=== PATIENT | female | born 1960 | race Caucasian/White ===

== ENCOUNTER → 2017-01-13 | Outpatient (CLI) | payer OTHER ==
[2015-12-31 16:00] VITALS: BP 116/74
--- NOTE | 2017-01-13 10:18 | RAD ---
DATE: 01/13/2017 EXAM: DIGITAL SCREEN BILAT W/CAD HISTORY: Routine screening COMPARISON: 01/10/2016, 01/10/2014, 08/31/2012 This study was interpreted with the benefit of Computerized Aided Detection (CAD). The breast parenchyma is heterogeneously dense, which could reduce sensitivity of mammography. Breast parenchyma level C. FINDINGS: No new or enlarging breast densities are seen. No malignant type microcalcifications are evident. IMPRESSION: Stable mammograms without evidence of malignancy. BI-RADS CATEGORY: 1 NEGATIVE RECOMMENDED FOLLOW-UP: 12M 12 MONTH FOLLOW-UP PQRS compliance statement: Patient information was entered into a reminder system with a target due date for the next mammogram. Mammography is a sensitive method for finding small breast cancers, but it does not detect them all and is not a substitute for careful clinical examination. A negative mammogram does not negate a clinically suspicious finding and should not result in delay in biopsying a clinically suspicious abnormality. "Our facility is accredited by the [employer] Mammography [employer]."
== END | disposition home or self-care (01) ==
LOC: MAMMO 07:55
PROVIDERS: ATTEND Obstetrics & Gynecology
DX: Z12.31 Encounter for screening mammogram for malignant neoplasm of breast (principal)
CPT/HCPCS: G0202; 77067

== ENCOUNTER → 2019-01-18 | Outpatient (CLI) | payer OTHER ==
[2015-12-31 16:00] VITALS: BP 116/74
--- NOTE | 2019-01-18 17:27 | RAD ---
DATE: 01/18/2018 EXAM: MAMMO NATA SCREENING BILATERAL HISTORY: Routine screening COMPARISON: 01/10/2016, 01/13/2017, 01/14/2018 mammographic exams This study was interpreted with the benefit of Computerized Aided Detection (CAD). Breast Density: HETERO The breast parenchyma is heterogenously dense, which could reduce sensitivity of mammography. Breast parenchyma level C. FINDINGS: Benign-appearing axillary lymph nodes are present. No mass or distortion. No suspicious calcifications. IMPRESSION: Stable. BI-RADS CATEGORY: 1 NEGATIVE RECOMMENDED FOLLOW-UP: 12M 12 MONTH FOLLOW-UP PQRS compliance statement: Patient information was entered into a reminder system with a target due date in one year is for the next mammogram. Mammography is a sensitive method for finding small breast cancers, but it does not detect them all and is not a substitute for careful clinical examination. A negative mammogram does not negate a clinically suspicious finding and should not result in delay in biopsying a clinically suspicious abnormality. "Our facility is accredited by the [employer] Mammography Program."
== END | disposition home or self-care (01) ==
LOC: MAMMO 12:55
PROVIDERS: ATTEND Obstetrics & Gynecology
DX: Z12.31 Encounter for screening mammogram for malignant neoplasm of breast (principal)
CPT/HCPCS: 77063; 77067

== ENCOUNTER → 2020-06-22 | Outpatient (CLI) | payer OTHER ==
[2015-12-31 16:00] VITALS: BP 116/74
--- NOTE | 2020-06-22 10:07 | RAD ---
XR RT TOE 2+ VIEWS DATE: 06/22/2020 8:55 AM INDICATION: RIGHT TOE INJURY / Spl. Instructions: / History: COMPARISON: None. FINDINGS: Bones: Acute nondisplaced fracture of the third distal phalanx. No intra-articular extension. Joints: The joint spaces are normal. Miscellaneous: None. IMPRESSION: Acute nondisplaced third distal phalanx fracture. Electronically signed by: Raj Chang MD (06/22/2020 10:04 AM) [id number]
== END ==
LOC: RAD 08:47
PROVIDERS: ATTEND Internal Medicine
DX: S92.911A Unspecified fracture of right toe(s), initial encounter for closed fracture (principal); X58.XXXA Exposure to other specified factors, initial encounter; Y93.89 Activity, other specified; Y92.89 Other specified places as the place of occurrence of the external cause; Y99.8 Other external cause status
CPT/HCPCS: 73660

== ENCOUNTER 2021-09-24 10:09 | Emergency (ER) | payer OTHER ==
[~2021-09-24] VITALS: Ht 167.6 cm; Wt 65.0 kg
--- NOTE | 2021-09-24 10:43 | PHYS DOC ---
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 Patient reports that her symptoms started this morning while she was waiting outside. She denies that the lightheadedness is worse with position changes or head movements. Patient believes that she has had too much sun over the last couple of days that she has been working in her garden in the sun. Patient denies vomiting, syncope, chest pain, shortness of breath, fever. Patient is only medical history is depression which she takes Cymbalta. Review of Systems: Review of Systems: Constitutional: See HPI Respiratory: See HPI Cardiovascular: See HPI GI: See HPI Neurologic: See HPI Psychiatric: See HPI Allergies: Allergies: Allergies Coded Allergies Type Severity Reaction Last Updated Verified No Known Drug Allergies 12/31/15 No Physical Exam: PE: Constitutional: Well developed, well nourished, no acute distress, non-toxic appearance. [] HENT: Normocephalic, atraumatic, bilateral external ears normal, oropharynx moist, no oral exudates, nose normal. [] Eyes: PERRL, 4mm bilaterally, no nystagmus, EOMI, conjunctiva normal, no discharge. [] Neck: Normal range of motion, no tenderness, supple, no stridor. [] Cardiovascular:Heart rate regular rhythm, no murmur [] Lungs & Thorax: Bilateral breath sounds clear to auscultation [] Abdomen: Bowel sounds normal, soft, no tenderness, no masses, no pulsatile masses. [] Skin: Warm, dry, no erythema, no rash. [] Back: No tenderness,normal ROM Extremities: No tenderness, no cyanosis, no clubbing, ROM intact, no edema. [] Neurologic: Alert and oriented X 3, normal motor function, normal sensory function, no focal deficits noted, no limb ataxia, no pronator drift, normal speech, patient moving all 4 extremities equally. [] Psychologic: Affect normal, judgement normal, mood normal. [] Current Patient Data: Labs: Laboratory Tests Test 09/24/21 11:00 09/24/21 11:05 Urine Collection Type Unknown Urine Color Yellow Urine Clarity Clear Urine pH 8.5 Urine Specific [place] 1.015 Urine Protein Neg Urine Glucose (UA) Neg mg/dL Urine Ketones (Stick) Neg mg/dL Urine Blood Neg Urine Nitrite Neg Urine Bilirubin Neg Urine Urobilinogen Dipstick 0.2 mg/dL Urine Leukocyte Esterase Neg Urine RBC Occ /HPF Urine WBC Occ /HPF Urine Squamous Epithelial Cells Mod /LPF Urine Bacteria 0 /HPF Urine Yeast Present /HPF White Blood Count 6.6 x10^3/uL Red Blood Count 4.06 x10^6/uL Hemoglobin 12.7 g/dL Hematocrit 38.4 % Mean Corpuscular Volume 95 fL Mean Corpuscular Hemoglobin 31 pg Mean Corpuscular Hemoglobin Concent 33 g/dL Red Cell Distribution Width 13.0 % Platelet Count 220 x10^3/uL Neutrophils (%) (Auto) 76 % Lymphocytes (%) (Auto) 17 % Monocytes (%) (Auto) 6 % Eosinophils (%) (Auto) 1 % Basophils (%) (Auto) 1 % Neutrophils # (Auto) 5.0 x10^3uL Lymphocytes # (Auto) 1.1 x10^3/uL Monocytes # (Auto) 0.4 x10^3/uL Eosinophils # (Auto) 0.1 x10^3/uL Basophils # (Auto) 0.0 x10^3/uL Sodium Level 136 mmol/L Potassium Level 4.5 mmol/L Chloride Level 97 mmol/L Carbon Dioxide Level 31 mmol/L Anion Gap 8 Blood Urea Nitrogen 20 mg/dL Creatinine 0.8 mg/dL Estimated GFR (Cockcroft-Gault) 73.4 BUN/Creatinine Ratio 25 Glucose Level 122 mg/dL Calcium Level 10.1 mg/dL Total Bilirubin 0.3 mg/dL Aspartate Amino Transf (AST/SGOT) 24 U/L Alanine Aminotransferase (ALT/SGPT) 32 U/L Alkaline Phosphatase 73 U/L Troponin I High Sensitivity 6 ng/L Total Protein 7.5 g/dL Albumin 4.5 g/dL Albumin/Globulin Ratio 1.5 Current Medications Medications (Trade) Dose Ordered Sig/Paulino Route PRN Reason Start Time Stop Time Status Last Admin Dose Admin Sodium Chloride 1,000 ml @ 1,000 mls/hr 1X ONCE IV 09/24/21 10:45 09/24/21 11:44 DC 09/24/21 11:14 Sodium Chloride 1,000 ml @ 1,000 mls/hr 1X ONCE IV 09/24/21 12:15 09/24/21 13:14 UNV Vital Signs: Vital Signs Date Time Temp Pulse Resp B/P (MAP) Pulse Ox O2 Delivery O2 Flow Rate FiO2 09/24/21 10:25 97.8 77 18 164/89 (114) 100 EKG: EKG: EKG performed by ER staff at 1056 shows sinus rhythm with a rate of 72, no STEMI read by Dr. Yu [] Radiology/Procedures: Radiology/Procedures: [] Heart Score: C/O Chest Pain: No Risk Factors: Risk Factors: DM, Current or recent (<one month) smoker, HTN, HLP, family history of CAD, obesity. Risk Scores: Score 0 - 3: 2.5% MACE over next 6 weeks - Discharge Home Score 4 - 6: 20.3% MACE over next 6 weeks - Admit for Clinical Observation Score 7 - 10: 72.7% MACE over next 6 weeks - Early Invasive Strategies Course & Med Decision Making: Course & Med Decision Making Pertinent Labs and Imaging studies reviewed. (See chart for details) Patient resents to the emergency department for shakiness, lightheadedness and nausea. Patient reports that her symptoms started today while she was out in the sun weeding in her garden. She reports that she has been out in the sun for prolonged period of time over the last couple of days working in her garden she believes that she is possibly dehydrated. Orthostatics were obtained in the emergency department that were negative. Patient's work-up in the ER consisted of blood work, EKG and urinalysis. Patient will be treated with IV fluids. Patient's blood work was unremarkable, negative troponin. Her blood sugar was 122. Urinalysis shows occasional white blood cells but no bacteria, no leukocytes and moderate squamous cells likely indicating contamination. Following treatment with 1 L of normal saline patient reports that her symptoms have improved but she still continues to be lightheaded. Patient was offered a second liter of IV fluids in which she declined stating she feels much better. Patient advised to increase fluids, slowly change positions and rest. I discussed with patient all findings and diagnostic testing as well as the need to follow-up with PCP for further evaluation and treatment or return to the ER if any new or worsening symptoms. Strict return precautions were also discussed at length. Patient voiced understanding and agreement with the plan. Patient is hemodynamically stable at the time of disposition. Manuel Disclaimer: Manuel Disclaimer: This electronic medical record was generated, in whole or in part, using a voice recognition dictation system. Departure Departure: Impression: Primary Impression: Episodic lightheadedness Disposition: HOME / SELF CARE / HOMELESS Condition: GOOD Referrals: MAGO STYLES MD (PCP) Patient Instructions: Dizziness Additional Instructions: You are seen in the emergency department today for lightheadedness. Your blood work was unremarkable. It is possible that you were dehydrated which is causing your lightheadedness. Please increase your fluids and rest. Avoid prolonged periods in the sun and heat. Slowly change positions to not cause lightheadedness. Follow-up with your primary care provider tomorrow regarding your ER visit. Return to the emergency department if you develop, syncope, chest pain breath, high fevers refractory to treatment, intractable nausea or vomiting. MARINA PATHAK [facility] APPR[employer]ISER September 24, 2021 10:43
[2021-09-24] MEDS ORDERED: IV NORMAL SALINE 1,000ML 1,000 ML IV ONE ×2 (10:45→12:15)
[2021-09-24 11:32] LABS: BASO % 1 % (0-3); EOS # 0.1 x10^3/uL (0.0-0.7); EOS % 1 % (0-3); HEMATOCRIT 38.4 % (36.0-47.0); HEMOGLOBIN 12.7 g/dL (12.0-15.5); LYMPH # 1.1 x10^3/uL (1.0-4.8); LYMPH % 17 % (24-48); MEAN CORPUSCULAR HEMOGLOBIN 31 pg (25-35); MEAN CORPUSCULAR HGB CONC 33 g/dL (31-37); MEAN CORPUSCULAR VOLUME 95 fL (79-100); MONO # 0.4 x10^3/uL (0.0-1.1); MONO % 6 % (0-9); NEUT % 76 % (31-73); PLATELET COUNT 220 x10^3/uL (140-400); RED BLOOD COUNT 4.06 x10^6/uL (3.50-5.40); WHITE BLOOD COUNT 6.6 x10^3/uL (4.0-11.0)
[2021-09-24 11:40] LABS: CALCIUM 10.1 mg/dL (8.5-10.1); CREATININE 0.8 mg/dL (0.6-1.0); GFR 73.4; POTASSIUM 4.5 mmol/L (3.5-5.1)
[2021-09-24 11:44] LABS: ALBUMIN 4.5 g/dL (3.4-5.0); ALBUMIN/GLOBULIN RATIO 1.5 (1.0-1.7); TOTAL BILIRUBIN 0.3 mg/dL (0.2-1.0); TOTAL PROTEIN 7.5 g/dL (6.4-8.2)
[2021-09-24 11:57] LABS: BACTERIA,URINE 0 /HPF (0-FEW); CLARITY,URINE CLEAR; COLOR,URINE YELLOW; GLUCOSE,URINE NEG (NEG); NITRITE,URINE NEG (NEG); RBC,URINE OCC /HPF (0-2); SQUAMOUS EPITHELIAL CELL,UR MOD /LPF; UROBILINOGEN,URINE 0.2 mg/dL (0.2 mg/dL); WBC,URINE OCC /HPF (0-4); YEAST,URINE PRESENT /HPF
[2021-09-24 13:24] VITALS: BP 129/83
== END 2021-09-24 13:25 | disposition home or self-care (01) ==
LOC: ER 10:09
DX: R42 Dizziness and giddiness (principal); R11.0 Nausea; F41.9 Anxiety disorder, unspecified; F32.9 Major depressive disorder, single episode, unspecified
CPT/HCPCS: 36415; 80053; 81001; 84484; 85025; 93005; 96360; 99284; J7030